=== PATIENT | male | born 1990 | race Caucasian/White ===

== ENCOUNTER 2022-03-30 06:10 | Day surgery (SDC) | payer OTHER, SELFPAY ==
[2022-03-30] VITALS (14 sets, daily range): BP systolic 102–145; BP diastolic 65–91; PULSE 44–80; RESP 14–18; TEMP 36.3–36.4; O2SAT 96–100; BMI 24.1
[2022-03-30] MEDS: SODIUM CHLORIDE 0.9 % (FLUSH) 10 ML SYRINGE IVF (06:52)
[2022-03-30] MEDS: LACTATED RINGERS 1000 ML 1,000 ML 100 ML IV (06:52)
--- NOTE | 2022-03-30 07:06 | CRLHL7_ITS ---
For Patients: As a result of the Cures Act, medical imaging exams and procedure reports are released immediately into your electronic medical record. You may view this report before your referring provider. If you have questions, please contact your health care provider. Indication: FOREIGN BODY REMOVAL Technique: AP view left knee. Fluoroscopy time 7.2 sec. IMPRESSION: Fluoroscopic guidance for foreign body removal. Dictated by Chavo Lares MD @ 03/30/2022 9:30:32 AM (Electronically Signed)
[2022-03-30] MEDS: CEFAZOLIN 2 GM INJ IVP (07:35)
[2022-03-30] MEDS: BUPIVACAINE 0.25 %/EPI 1:200K 30 ml 10 ML INJECTION (08:08)
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
--- NOTE | 2022-03-30 08:24 | W.ANESCHARGE ---
Anesthesia Charges Start Date/Time Anesthesia Start Date: 03/30/22 Anesthesia Start Time: 07:28 Stop Date/Time Anesthesia Stop Date: 03/30/22 Anesthesia Stop Time: 08:15 Summary Emergency: No
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
== END 2022-03-30 10:35 | disposition home or self-care (01) ==
PROVIDERS: PCP Family Medicine; Visit Provider Orthopaedic Surgery Sports Medicine
PROC: (CPT 10120; principal; 2022-03-30 07:30)
DX: M79.5 Residual foreign body in soft tissue (principal)
CPT/HCPCS: 10120 ×3; 00400; 73560; 76000; J0690; J1100; J2250; J2405; J2704; J3010; J3490; J7120

== ENCOUNTER 2022-06-20 15:44 | Outpatient (CLI) | payer SELFPAY ==
[2022-06-20 22:04] LABS: Albumin* 4.9 g/dL (3.3-5.0)
[2022-06-20 22:05] LABS: Potassium* 4.8 mmol/L (3.6-5.1); Sodium* 137 mmol/L (135-149)
[2022-06-20 22:07] LABS: Alkaline Phosphatase* 108 U/L (40-150); Aspartate Amino Transferase* 27 U/L (12-35); Bilirubin Total* 0.7 mg/dL (0.1-1.5); Blood Urea Nitrogen* 12 mg/dL (5-24); Carbon Dioxide* 29 mmol/L (20-32); Cholesterol* 231 mg/dL (90-199); Creatinine* 0.9 mg/dL (0.5-1.5); Estimated Glomerular Filt Rate 116 ml/min; Total Protein* 7.8 g/dL (6.0-8.3)
[2022-06-20 22:08] LABS: Alanine Aminotransferase* 26 U/L (4-50); Calcium* 10.5 mg/dL (8.4-10.6); Glucose* 107 mg/dL (60-115); HDL Cholesterol* 69 mg/dL (>=40); LDL Cholesterol Calculated 140 mg/dL (<100); Triglycerides* 111 mg/dL (40-149)
[2022-06-20 22:20] LABS: Chloride* 98 mmol/L (96-114)
== END 2022-06-20 15:45 | disposition home or self-care (01) ==
PROVIDERS: PCP Family Medicine; Visit Provider Family Medicine
DX: Z00.00 Encounter for general adult medical examination without abnormal findings (principal); R07.9 Chest pain, unspecified; Z13.6 Encounter for screening for cardiovascular disorders
CPT/HCPCS: 80053; 80061